=== PATIENT | male | born 1985 | race American Indian/Alaskan Native ===

== ENCOUNTER 2021-10-07 01:03 | Emergency (ER) | payer OTHER ==
[2021-10-07 04:40] VITALS: BP 148/107
--- NOTE | 2021-10-07 05:10 | Emergency Department Report ---
ED ENT HPI - General Chief complaint: High BP Stated complaint: BLEEDING/MOUTH AND NOSE Source: patient Mode of arrival: Ambulatory Limitations: No Limitations - History of Present Illness Initial comments: 36-year-old male presents to the ED complaining epistaxis x5 hours ago. He states that he normally sleeps with a fan on . Patient states that epistaxis has resolved within 20 minutes of holding pressure. Patient denies any history of hypertension. Patient is alert and oriented x3. Denies any headache blurry vision nausea or vomiting. No acute distress noted. No ill appearance noted. MD complaint: epistaxis Onset/Timin -: hour(s) Improves with: cold therapy Worsens with: none - Related Data Previous Rx's Medication Instructions Recorded Last Taken Type Levocetirizine Dihydrochloride 5 mg PO QDAY 30 Days #30 tab 10/07/21 Unknown Rx [Xyzal] ED Dental HPI - General Chief complaint: High BP Stated complaint: BLEEDING/MOUTH AND NOSE Source: patient Mode of arrival: Ambulatory Limitations: No Limitations - Related Data Previous Rx's Medication Instructions Recorded Last Taken Type Levocetirizine Dihydrochloride 5 mg PO QDAY 30 Days #30 tab 10/07/21 Unknown Rx [Xyzal] ED Review of Systems ROS: Stated complaint: BLEEDING/MOUTH AND NOSE Other details as noted in HPI Constitutional: denies: chills, fever Eyes: denies: eye pain, eye discharge, vision change ENT: denies: ear pain, throat pain Respiratory: denies: cough, shortness of breath, wheezing Cardiovascular: denies: chest pain, palpitations Endocrine: no symptoms reported Gastrointestinal: denies: abdominal pain, nausea, diarrhea Genitourinary: denies: urgency, dysuria Musculoskeletal: denies: back pain, joint swelling, arthralgia Skin: denies: rash, lesions Neurological: denies: headache, weakness, paresthesias Psychiatric: denies: anxiety, depression Hematological/Lymphatic: denies: easy bleeding, easy bruising ED Past Medical Hx - Medications Home Medications: Home Medications Medication Instructions Recorded Confirmed Last Taken Type Levocetirizine Dihydrochloride 5 mg PO QDAY 30 Days #30 tab 10/07/21 Unknown Rx [Xyzal] ED Physical Exam - General Limitations: No Limitations General appearance: alert, in no apparent distress - Head Head exam: Present: atraumatic, normocephalic - Eye Eye exam: Present: normal appearance - ENT ENT exam: Present: mucous membranes moist - Neck Neck exam: Present: normal inspection - Respiratory Respiratory exam: Present: normal lung sounds bilaterally. Absent: respiratory distress - Cardiovascular Cardiovascular Exam: Present: regular rate, normal rhythm. Absent: systolic murmur, diastolic murmur, rubs, gallop - GI/Abdominal GI/Abdominal exam: Present: soft, normal bowel sounds - Rectal Rectal exam: Present: deferred - Extremities Exam Extremities exam: Present: normal inspection - Back Exam Back exam: Present: normal inspection - Neurological Exam Neurological exam: Present: alert, oriented X3 - Psychiatric Psychiatric exam: Present: normal affect, normal mood - Skin Skin exam: Present: warm, dry, intact, normal color. Absent: rash ED Course Vital Signs 10/07/21 10/07/21 10/07/21 01:10 04:39 04:40 Temperature 98.8 F Pulse Rate 91 H 83 Respiratory 18 15 15 Rate Blood Pressure 172/112 Blood Pressure 148/107 [Left] O2 Sat by Pulse 95 97 100 Oximetry ED Medical Decision Making - Medical Decision Making 36-year-old male presents to the ED complaining epistaxis x5 hours ago. He states that he normally sleeps with a fan on . Patient states that epistaxis has resolved within 20 minutes of holding pressure. Patient denies any history of hypertension. Patient is alert and oriented x3. Denies any headache blurry vision nausea or vomiting. No acute distress noted. No ill appearance noted. Physical examination is unremarkable no epistaxis at present time. Rechecked the patient is resting quietly quietly and comfortable and feeling better. I discussed the results of diagnostic study, my clinical impression and the plan for further treatment with the patient. Patient agrees with plan and discharge at this present time. All question addressed. I have given the patient instruction regarding a diagnosis ,expectation ,follow- up and return precaution. I explained to the patient that emergent condition may arise and to return to the ED for new worsen and any new persisting condition. I have explained the importance of following up with the primary care physician or referral physician listed below has instructed. The patient verbalized understanding of discharge instruction. Critical care attestation.: If time is entered above; I have spent that time in minutes in the direct care of this critically ill patient, excluding procedure time. ED Disposition Clinical Impression: Epistaxis, Hypertension Disposition: HOME / SELF CARE / HOMELESS Is pt being admited?: No Does the pt Need Aspirin: No Condition: Stable Instructions: Nosebleed, [id number], Hypertension (ED), Preventing Hypertension, Hypertension, Adult, [id number] Additional Instructions: Return to the ED for any worsening symptom Prescriptions: Levocetirizine Dihydrochloride [Xyzal] 5 mg PO QDAY 30 Days #30 tab Referrals: [facility] [Provider Group] - 3-5 Days Forms: Work/School Release Form(ED) Time of Disposition: 05:15
== END 2021-10-07 05:37 | disposition home or self-care (01) ==
LOC: ED 01:03
DX: R04.0 Epistaxis (principal); I10 Essential (primary) hypertension
CPT/HCPCS: 99282

== ENCOUNTER 2022-01-10 02:14 | Emergency (ER) | payer OTHER ==
[2022-01-10 03:32] LABS: Basophils % (Auto) 0.5 % (0.0-1.8); Eosinophils % (Auto) 0.7 % (0.0-4.3); Hematocrit 45.9 % (35.5-45.6); Hemoglobin 15.6 gm/dl (11.8-15.2); Lymphocytes # (Auto) 2.2 K/mm3 (1.2-5.4); Lymphocytes % (Auto) 43.9 % (13.4-35.0); Mean Corpuscular HGB Conc 34 % (32-34); Mean Corpuscular Volume 88 fl (84-94); Monocytes # (Auto) 0.6 K/mm3 (0.0-0.8); Monocytes % (Auto) 11.1 % (0.0-7.3); Platelet Count 248 K/mm3 (140-440); Red Blood Count 5.22 M/mm3 (3.65-5.03); Red Cell Distribution Width 14.2 % (13.2-15.2)
--- NOTE | 2022-01-10 03:36 | XRay Report ---
CHEST 2 VIEWS INDICATION / CLINICAL INFORMATION: Chest Pain. COMPARISON: None available. FINDINGS: SUPPORT DEVICES: None. HEART / MEDIASTINUM: No significant abnormality. LUNGS / PLEURA: No significant pulmonary or pleural abnormality. No pneumothorax. ADDITIONAL FINDINGS: No significant additional findings. IMPRESSION: 1. No acute findings. Signer Name: Demar Sandra MD Signed: 01/10/2022 3:31 AM Workstation Name: [id number]
[2022-01-10 04:36] LABS: BUN/Creatinine Ratio 17; Blood Urea Nitrogen 20 mg/dL (9-20); Calcium 9.9 mg/dL (8.4-10.2); Hemolysis Index 7
[2022-01-10] MEDS ORDERED: hydrALAZINE 20 MG/1 ML INJ IV ONE (09:47)
[2022-01-10] MEDS ORDERED: cloNIDine 0.1 MG TAB PO ONE (09:53)
--- NOTE | 2022-01-10 10:27 | Emergency Department Report ---
ED Chest Pain HPI - General Chief Complaint: Chest Pain Stated Complaint: CHEST PAIN PUI?: No Time Seen by Provider: 01/10/22 09:32 Source: patient Mode of arrival: Ambulatory Limitations: No Limitations - History of Present Illness Initial Comments: 36 YO COMES TO ER LAST NIGHT AT 0200 FROM WORK WITH CHEST PAIN HE DESCRIBES FULLNESS NO SOB NO FEVER/CHILLS NO COUGH NO NAUSEA MD Complaint: chest pain -: Sudden, hour(s) Onset: during rest, during exertion Pain Location: substernal, left chest Severity: moderate Severity scale (0 -10): 3 Quality: tightness Consistency: intermittent Improves With: nothing Worsens With: nothing Treatments Prior to Arrival: none Aspirin use within the Past 7 Days: (0) No - Related Data On Oral Contraceptives: No Previous Rx's Medication Instructions Recorded Last Taken Type Levocetirizine Dihydrochloride 5 mg PO QDAY 30 Days #30 tab 10/07/21 Unknown Rx [Xyzal] Allergies Allergy/AdvReac Type Severity Reaction Status Date / Time No Known Allergies Allergy Unverified 01/10/22 02:59 Heart Score - HEART Score History: Slightly suspicious EKG: Normal Age: < 45 Risk factors: No known risk factors Troponin: < normal limit HEART Score: 0 - EKG Read Time Time EKG Completed: 09:59 EKG Read Time: 09:39 ED Review of Systems ROS: Stated complaint: CHEST PAIN Other details as noted in HPI Comment: All other systems reviewed and negative ED Past Medical Hx - Past Medical History Previous Medical History?: No - Surgical History Past Surgical History?: No - Family History Family history: no significant, other (MOM AND DAD A/W) - Social History Smoking Status: Never Smoker Substance Use Type: Alcohol - Medications Home Medications: Home Medications Medication Instructions Recorded Confirmed Last Taken Type Levocetirizine Dihydrochloride 5 mg PO QDAY 30 Days #30 tab 10/07/21 Unknown Rx [Xyzal] ED Physical Exam - General Limitations: No Limitations General appearance: alert, in no apparent distress - Head Head exam: Present: atraumatic, normocephalic - Eye Eye exam: Present: normal appearance - ENT ENT exam: Present: mucous membranes moist - Neck Neck exam: Present: normal inspection - Respiratory Respiratory exam: Present: normal lung sounds bilaterally. Absent: respiratory distress - Cardiovascular Cardiovascular Exam: Present: regular rate, normal rhythm. Absent: systolic murmur, diastolic murmur, rubs, gallop - GI/Abdominal GI/Abdominal exam: Present: soft, normal bowel sounds - Rectal Rectal exam: Present: deferred - Extremities Exam Extremities exam: Present: normal inspection - Back Exam Back exam: Present: normal inspection - Neurological Exam Neurological exam: Present: alert, oriented X3 - Psychiatric Psychiatric exam: Present: normal affect, normal mood - Skin Skin exam: Present: warm, dry, intact, normal color. Absent: rash ED Course Vital Signs 01/10/22 01/10/22 01/10/22 02:52 09:38 10:16 Temperature 98.5 F Pulse Rate 86 75 75 Respiratory 18 18 Rate Blood Pressure 157/108 149/98 [Right] O2 Sat by Pulse 99 99 Oximetry LESTER score - Lester Score Age > 65: (0) No Aspirin use within the Past 7 Days: (0) No 3 or more CAD Risk Factors: (0) No 2 or more Angina events in past 24 hrs: (0) No Known CAD with more than 50% Stenosis: (0) No Elevated Cardiac Markers: (0) No ST Deviation Greater than 0.5mm: (0) No LESTER Score: 0 ED Medical Decision Making - Lab Data Result diagrams: 01/10/22 03:14 01/10/22 03:14 - EKG Data EKG shows normal: sinus rhythm Rate: normal - EKG Data When compared to previous EKG there are: no significant change Interpretation: no acute changes - Radiology Data Radiology results: report reviewed, image reviewed [facility] - Medical Decision Making Labs 01/10/22 01/10/22 03:14 03:14 WBC 5.0 RBC 5.22 H Hgb 15.6 H Hct 45.9 H MCV 88 MCH 30 MCHC 34 RDW 14.2 Plt Count 248 Lymph % (Auto) 43.9 H [place] % (Auto) 11.1 H Eos % (Auto) 0.7 Baso % (Auto) 0.5 Lymph # (Auto) 2.2 [place] # (Auto) 0.6 Eos # (Auto) 0.0 Baso # (Auto) 0.0 Seg Neutrophils % 43.8 Seg Neutrophils # 2.2 Sodium 132 L Potassium 4.2 Chloride 96.3 L Carbon Dioxide 27 Anion Gap 13 BUN 20 Creatinine 1.2 Estimated GFR > 60 BUN/Creatinine Ratio 17 Glucose 104 H Calcium 9.9 Troponin T < 0.010 Vital Signs 01/10/22 01/10/22 01/10/22 02:52 09:38 10:16 Temperature 98.5 F Pulse Rate 86 75 75 Respiratory 18 18 Rate Blood Pressure 157/108 149/98 [Right] O2 Sat by Pulse 99 99 Oximetry 12 LEAD X 2 NAP OR DYNAMIC CHANGE TROP X 2 XRAY CHEST NOTED CR 1.2- NO OTHER VALUE AVAILABLE RN RECHECKED INITIAL BP AND MAP 114- CLONIDINE PO PRIOR ER VISIT PT HAD HTN WELL HE DID NOT FOLLOW UP AT THAT TIME HE WAS NOT SEEN FOR CP NO SOB NO FEVER OR CHILLS DENIES DRUGS DOES DRINK ENERGY DRINKS MOM AND DAD W NO CARDIAC HX HE STATES - Differential Diagnosis HTN URG/EMERG Critical care attestation.: If time is entered above; I have spent that time in minutes in the direct care of this critically ill patient, excluding procedure time. ED Disposition Clinical Impression: HTN (hypertension) Qualifiers: Hypertension type: unspecified Qualified Code(s): I10 - Essential (primary) hypertension Disposition: 01 HOME / SELF CARE / HOMELESS Is pt being admited?: No Does the pt Need Aspirin: No Condition: Stable Instructions: Hypertension, Adult, [id number], Hypertension (ED) Additional Instructions: CR- KIDNEY FUNCTION 1.2 TWICE NOW YOU HAVE BEEN IN ER WITH HIGH BP AVOID DRUGS/ALCOHOL/ENERGY DRINKS DRINK A LOT OF WATER FOLLOW UP WITH PCP REFERRAL BELOW SEE ATTACHED INFO ON DIET AND HTN MONITOR YOUR BP TAKE THE SAME TIME OF DAY IN SAME ARM WITH SAME MACHINE AT LEAST A COUPLE TIMES A WEEK RECORD AND TAKE TO PCP WITH YOU HE WILL DECIDE WHAT MEDS YOU ARE GOING TO NEED TO BE ON Referrals: CM COLEMAN MD [Staff Physician] - 3-5 Days Forms: Work/School Release Form(ED) Time of Disposition: 10:25
[2022-01-10 12:48] VITALS: BP 138/74
--- NOTE | 2022-01-12 19:24 | Electrocardiograph Report ---
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
--- NOTE | 2022-01-12 19:25 | Electrocardiograph Report ---
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
== END 2022-01-10 12:48 | disposition home or self-care (01) ==
LOC: ED 02:14
DX: I10 Essential (primary) hypertension (principal); F10.20 Alcohol dependence, uncomplicated
CPT/HCPCS: 36415; 71046; 80048; 84484; 85025; 93005; 99284; J0360